=== PATIENT | female | born 1945 | race Caucasian/White ===

== ENCOUNTER 2017-01-05 18:39 | Emergency (ER) | payer MEDICARE, BC ==
[~2017-01-05] VITALS: Ht 172.7 cm; Wt 78.1 kg
[~2017-01-05 18:39] MED LIST: AMLO2.5T OR; ATOR10 PO
[2017-01-05 18:51] VITALS: BP 163/89; PULSE 101; RESP 16; TEMP 97.6; O2SAT 97
[2017-01-05 19:18] VITALS: PULSE 89; RESP 18; TEMP 97.6; O2SAT 97
[2017-01-05] MEDS ORDERED: SODIUM CHLOR 0.9% 1000 ML INJ 1,000 ML IV SCH (19:34)
--- NOTE | 2017-01-05 19:38 | PD ---
HPI Chief Complaint: GI Complaint Time Seen by Provider: 19:33 Travel History International Travel<30 days: Yes Contact w/Intl Traveler<30days: Yes Name of Country Traveled to: [facility] Traveled to known affect area: No History of Present Illness HPI The patient is a 71-year-old female that took some Augmentin at 12:30 today and then at approximately 5 PM started nausea with vomiting. She vomited 3 times. The Augmentin was for a sinus infection, no x-rays were taken and it was given to her by an urgent care center. She states the Augmentin was for a cold/sinus drainage. She denies any diarrhea or fever. She recently returned from a cruise to [place]. To her knowledge they did not have a problem with gastroenteritis/diarrhea on the boat. There is no blood in the vomitus. She does have some slight frequency of urination. She denies any flank pain. PFSH Past Medical History Diminished Hearing: No Hypertension: Yes Triglycerides - High: Yes Tetanus Vaccination: Unknown Influenza Vaccination: Yes ?: Not Menopausal: Yes Past Surgical History Gynecologic Surgery: Yes Hysterectomy: Yes Social History Alcohol Use: Yes (SOC) Tobacco Use: No Substance Use: No Allergies-Medications (Allergen,Severity, Reaction): Coded Allergies: Metronidazole (Verified Allergy, Mild, RASH, 08/31/12) Reported Meds & Prescriptions Reported Meds & Active Scripts Active Zofran (Ondansetron HCl) 4 Mg Tab 4 Mg PO Q6HR PRN Reported Lipitor (Atorvastatin Calcium) 10 Mg Tab 10 Mg PO DAILY Amlodipine Besylate 2.5 mg (Amlodipine Besylate) 2.5 Mg Tab 5 Mg OR DAILY Review of Systems Except as stated in HPI: all other systems reviewed are Neg Physical Exam Narrative GENERAL: The patient is alert, oriented 3 in slight apparent distress with her nausea. Her vital signs initially showed a heart rate of 101 and blood pressure 163/89. Repeat heart rate is 89. When I see the patient her pulse rate is in the mid 80s. SKIN: Focused skin assessment warm/dry. HEAD: Atraumatic. Normocephalic. EYES: Pupils equal and round. No scleral icterus. No injection or drainage. ENT: No nasal bleeding or discharge. Mucous membranes pink and moist. NECK: Trachea midline. No JVD. CARDIOVASCULAR: Regular rate and rhythm. No murmur appreciated. RESPIRATORY: No accessory muscle use. Clear to auscultation. Breath sounds equal bilaterally. GASTROINTESTINAL: Abdomen soft, non-tender, nondistended. Hepatic and splenic margins not palpable. No guarding or rebound is present. MUSCULOSKELETAL: No obvious deformities. No clubbing. No cyanosis. No edema. NEUROLOGICAL: Awake and alert. No obvious cranial nerve deficits. Motor grossly within normal limits. Normal speech. PSYCHIATRIC: Appropriate mood and affect; insight and judgment normal. Data Data Last Documented VS Vital Signs Date Time Temp Pulse Resp B/P Pulse Ox O2 Delivery O2 Flow Rate FiO2 01/05/17 20:12 90 16 163/73 97 Room Air 01/05/17 19:18 97.6 Orders Complete Blood Count With Diff (01/05/17 19:34) Comprehensive Metabolic Panel (01/05/17 19:34) Lipase (01/05/17 19:34) Urinalysis - C+S If Indicated (01/05/17 19:34) Iv Access Insert/Monitor (01/05/17 19:34) Ecg Monitoring (01/05/17 19:34) Oximetry (01/05/17 19:34) Ondansetron Inj (Zofran Inj) (01/05/17 19:45) Sodium Chlor 0.9% 1000 Ml Inj (Ns 1000 M (01/05/17 19:34) Sodium Chloride 0.9% Flush (Ns Flush) (01/05/17 19:45) Urine Culture (01/05/17 20:50) Labs Laboratory Tests Test 01/05/17 01/05/17 19:35 20:50 White Blood Count 13.7 TH/MM3 Red Blood Count 5.30 MIL/MM3 Hemoglobin 14.3 GM/DL Hematocrit 42.6 % Mean Corpuscular Volume 80.3 FL Mean Corpuscular Hemoglobin 26.9 PG Mean Corpuscular Hemoglobin 33.5 % Concent Red Cell Distribution Width 13.8 % Platelet Count 209 TH/MM3 Mean Platelet Volume 9.3 FL Neutrophils (%) (Auto) 79.9 % Lymphocytes (%) (Auto) 11.3 % Monocytes (%) (Auto) 7.6 % Eosinophils (%) (Auto) 0.7 % Basophils (%) (Auto) 0.5 % Neutrophils # (Auto) 10.9 TH/MM3 Lymphocytes # (Auto) 1.6 TH/MM3 Monocytes # (Auto) 1.0 TH/MM3 Eosinophils # (Auto) 0.1 TH/MM3 Basophils # (Auto) 0.1 TH/MM3 CBC Comment DIFF FINAL Differential Comment Sodium Level 138 MEQ/L Potassium Level 4.0 MEQ/L Chloride Level 102 MEQ/L Carbon Dioxide Level 27.4 MEQ/L Anion Gap 9 MEQ/L Blood Urea Nitrogen 17 MG/DL Creatinine 1.00 MG/DL Estimat Glomerular Filtration 55 ML/MIN Rate Random Glucose 132 MG/DL Calcium Level 8.8 MG/DL Total Bilirubin 0.4 MG/DL Aspartate Amino Transf 17 U/L (AST/SGOT) Alanine Aminotransferase 27 U/L (ALT/SGPT) Alkaline Phosphatase 58 U/L Total Protein 7.6 GM/DL Albumin 3.7 GM/DL Lipase 226 U/L Urine Color YELLOW Urine Turbidity CLEAR Urine pH 5.5 Urine Specific [place] 1.012 Urine Protein NEG mg/dL Urine Glucose (UA) NEG mg/dL Urine Ketones NEG mg/dL Urine Occult Blood TRACE Urine Nitrite NEG Urine Bilirubin NEG Urine Leukocyte Esterase TRACE Urine RBC 0-3 /hpf Urine WBC 6-8 /hpf Urine WBC Clumps FEW Urine Squamous Epithelial 0-5 /hpf Cells Microscopic Urinalysis Comment CULTURE INDICATED MDM Medical Decision Making Medical Screen Exam Complete: Yes Emergency Medical Condition: Yes Medical Record Reviewed: Yes Interpretation(s) The CBC shows a white count of 13,700 but is otherwise unremarkable. The glucose is 132 but the rest of the complete metabolic profile is unremarkable. The lipase is normal. The urine shows 6-8 white cells and few white cell clumps and culture is indicated. Differential Diagnosis Cystitis, pyelonephritis, medication side effect, gastroenteritis, gastritis, pancreatitis, electrolyte disorder, dehydration Narrative Course The patient likely has an Augmentin side effect. She also has a cystitis. There is no evidence for pyelonephritis at this time, she does not have any flank tenderness. Diagnosis Primary Impression: Medication side effect Additional Impression: Cystitis Med/Other Pt SpecificInfo: Prescription(s) given Scripts Nitrofurantoin Monohydrate Macrocrystals (Macrobid)100 Mg [id number] Mg PO BID 10 Days Ref 0 Prov:Harvinder Arroyo MD 01/05/17 Ondansetron (Zofran)4 Mg Tab4 Mg PO Q6HR PRN (NAUSEA OR VOMITING) #28 TAB Ref 0 Prov:Harvinder Arroyo MD 01/05/17 Disposition: 01 DISCHARGE HOME Condition: Stable Harvinder Arroyo MD Jan 05, 2017 19:38
[2017-01-05] MEDS ORDERED: SODIUM CHLORIDE 0.9% FLUSH 10 ML FLUSH IV FLUSH PRN (19:45)
[2017-01-05] MEDS ORDERED: ONDANSETRON HCL 4 MG/2 ML VIAL IVP ONE (19:45)
[2017-01-05 20:03] LABS: CHLORIDE 102 MEQ/L (98-107); SODIUM (NA) 138 MEQ/L (136-145)
[2017-01-05 20:07] LABS: ANION GAP 9 MEQ/L (5-15); AUTOMATED NEUTROPHIL # 10.9 TH/MM3 (1.8-7.7); BASOPHIL # 0.1 TH/MM3 (0-0.2); BASOPHIL % 0.5 % (0.0-2.0); BICARBONATE 27.4 MEQ/L (21.0-32.0); BLOOD UREA NITROGEN 17 MG/DL (7-18); EOSINOPHIL # 0.1 TH/MM3 (0-0.4); EOSINOPHIL % 0.7 % (0.0-4.0); HEMATOCRIT 42.6 % (35.0-46.0); LYMPH % 11.3 % (9.0-44.0); LYMPHOCYTE # 1.6 TH/MM3 (1.0-4.8); MEAN CELL VOLUME 80.3 FL (80.0-100.0); MEAN CORPUSCULAR HEMOGLOBIN 26.9 PG (27.0-34.0); MEAN CORPUSCULAR HGB CONC 33.5 % (32.0-36.0); MONO % 7.6 % (0.0-8.0); NEUT % 79.9 % (16.0-70.0); PLATELET COUNT 209 TH/MM3 (150-450); RED CELL DISTRIBUTION WIDTH 13.8 % (11.6-17.2); WHITE BLOOD COUNT 13.7 TH/MM3 (4.0-11.0)
[2017-01-05 20:09] LABS: ALT (GPT) 27 U/L (10-53)
[2017-01-05 20:10] LABS: AST (GOT) 17 U/L (15-37); GLOMERULAR FILTRATION RATE 55 ML/MIN (>89)
[2017-01-05 20:11] LABS: TOTAL BILIRUBIN ADULT 0.4 MG/DL (0.2-1.0)
[2017-01-05 20:12] VITALS: BP 163/73; PULSE 90; RESP 16; O2SAT 97
[2017-01-05 20:12] LABS: ALKALINE PHOSPHATASE 58 U/L (45-117)
[2017-01-05 20:13] LABS: HEMO FLAGS DIFF FINAL
[2017-01-05] MEDS ORDERED: ZOFR4TAB PO (20:19)
[2017-01-05 20:57] LABS: BLOOD, URINE TRACE (NEG); GLUCOSE,URINE NEG (NEG); KETONE, URINE NEG (NEG); NITRITE,URINE NEG (NEG); PH, URINE 5.5 (5.0-8.5)
[2017-01-05 21:06] LABS: URINE COLOR YELLOW (YELLW/STRAW)
[2017-01-05 21:07] LABS: COMMENT (UR) CULTURE INDICATED; CULTURE IF INDICATED CULTURE INDICATED; RBC, URINE 0-3 /hpf (0-3); SQUAMOUS EPITHELIAL CELL URINE 0-5 /hpf (0-5)
[2017-01-05] MEDS ORDERED: MACR100C2 PO (21:22)
[2017-01-05] MEDS ORDERED: NITROFURANTOIN MONOHYD MACROCR 100 MG CAP PO ONE (21:45)
[2017-01-05 22:00] VITALS: BP 158/75; PULSE 89; RESP 16; O2SAT 97
== END 2017-01-05 22:04 | disposition home or self-care (01) ==
LOC: PHED 18:39
DX: R11.2 Nausea with vomiting, unspecified (principal); T36.0X5A Adverse effect of penicillins, initial encounter; N30.90 Cystitis, unspecified without hematuria; I10 Essential (primary) hypertension; E78.1 Pure hyperglyceridemia
CPT/HCPCS: 80053; 81001; 83690; 85025; 87086; 96361; 96374; 99284; J2405; J7030

== ENCOUNTER 2017-06-13 06:41 | Emergency (ER) | payer MEDICARE, BC ==
[2017-06-13] VITALS (7 sets, daily range): BP systolic 148–226; BP diastolic 81–109; PULSE 79–94; RESP 16–18; TEMP 97.6; O2SAT 99
[~2017-06-13] VITALS: Ht 172.7 cm; Wt 77.8 kg
[~2017-06-13 06:41] MED LIST changes: +MACR100C2 PO; +ZOFR4TAB PO
[2017-06-13] MEDS ORDERED: ALEV220T14 PO (07:20)
[2017-06-13] MEDS ORDERED: ALPR.25 PO (07:20)
--- NOTE | 2017-06-13 07:58 | PD ---
HPI Chief Complaint: Hypertension Time Seen by Provider: 07:54 Travel History International Travel<30 days: No Contact w/Intl Traveler<30days: No Traveled to known affect area: No History of Present Illness HPI 72-year-old female patient with history of hypertension, currently not on any blood pressure medications because she was taken off by her physician and the summer, has cut off all soft drinks from her diet since yesterday, states that she usually drinks several clarita and Buster-up daily. She states that they are caffeinated. She states that she started having headaches yesterday evening, progressing today. She states is currently a 7 out of 10. She denies any nausea, vomiting, fevers, coughing, or any other symptoms. She does not know any exacerbating or alleviating factors. Modifying Factors: None Associated Signs & Symptoms: Headache Risk Factors: High blood pressure PFSH Past Medical History Arthritis: Yes (right knee) Anxiety: Yes Diminished Hearing: No Hypertension: Yes Triglycerides - High: Yes Tetanus Vaccination: > 5 Years Influenza Vaccination: Yes ?: Not Menopausal: Yes Past Surgical History Appendectomy: Yes Gynecologic Surgery: Yes Hysterectomy: Yes Tonsillectomy: Yes Social History Alcohol Use: Yes (SOC) Tobacco Use: No Substance Use: No Allergies-Medications (Allergen,Severity, Reaction): Coded Allergies: [id number] Reductase Inhibitor (Verified Allergy, Intermediate, rash , 06/13/17) acetaminophen (Verified Allergy, Intermediate, Nausea/Vomiting, 06/13/17) amoxicillin (Verified Allergy, Intermediate, hives, 06/13/17) clavulanic acid (Verified Allergy, Intermediate, hives, 06/13/17) hydrocodone (Verified Allergy, Intermediate, Nausea/Vomiting, 06/13/17) metronidazole (Unverified Allergy, Mild, RASH, 06/13/17) Reported Meds & Prescriptions Reported Meds & Active Scripts Active Reported Aleve Arthritis (Naproxen Sodium) 220 Mg Tab 220 Mg PO BID PRN Xanax (Alprazolam) 0.25 Mg Tab 0.25 Mg PO HS PRN Review of Systems Except as stated in HPI: all other systems reviewed are Neg Physical Exam Narrative GENERAL: Well-developed elderly white female patient currently in mild distress. Awake and oriented 3. SKIN: Focused skin assessment warm/dry. HEAD: Atraumatic. Normocephalic. EYES: Pupils equal and round. No scleral icterus. No injection or drainage. ENT: No nasal bleeding or discharge. Mucous membranes pink and moist. NECK: Trachea midline. No JVD. Supple. CARDIOVASCULAR: Regular rate and rhythm. No murmur appreciated. RESPIRATORY: No accessory muscle use. Clear to auscultation. Breath sounds equal bilaterally. GASTROINTESTINAL: Abdomen soft, non-tender, nondistended. Hepatic and splenic margins not palpable. MUSCULOSKELETAL: No obvious deformities. No clubbing. No cyanosis. No edema. NEUROLOGICAL: Awake and alert. No obvious cranial nerve deficits. Motor grossly within normal limits. Normal speech. PSYCHIATRIC: Appropriate mood and affect; insight and judgment normal. Data Data Last Documented VS Vital Signs Date Time Temp Pulse Resp B/P (MAP) Pulse Ox O2 Delivery O2 Flow Rate FiO2 06/13/17 09:06 80 16 179/90 (119) 99 Room Air 06/13/17 06:51 97.6 Orders Orders Complete Blood Count With Diff (06/13/17 07:54) Comprehensive Metabolic Panel (06/13/17 07:54) Prothrombin Time / Inr (Pt) (06/13/17 07:54) Act Partial Throm Time (Ptt) (06/13/17 07:54) Ct Brain W/O Iv Contrast(Rout) (06/13/17 07:54) Ecg Monitoring (06/13/17 07:54) Iv Access Insert/Monitor (06/13/17 07:54) Oximetry (06/13/17 07:54) Sodium Chloride 0.9% Flush (Ns Flush) (06/13/17 08:00) Clonidine (Catapres) (06/13/17 08:00) Labs Laboratory Tests Test 06/13/17 08:05 White Blood Count 9.1 TH/MM3 Red Blood Count 5.22 MIL/MM3 Hemoglobin 13.7 GM/DL Hematocrit 41.6 % Mean Corpuscular Volume 79.6 FL Mean Corpuscular Hemoglobin 26.3 PG Mean Corpuscular Hemoglobin Concent 33.0 % Red Cell Distribution Width 13.9 % Platelet Count 294 TH/MM3 Mean Platelet Volume 8.5 FL Neutrophils (%) (Auto) 73.2 % Lymphocytes (%) (Auto) 18.6 % Monocytes (%) (Auto) 6.0 % Eosinophils (%) (Auto) 1.5 % Basophils (%) (Auto) 0.7 % Neutrophils # (Auto) 6.7 TH/MM3 Lymphocytes # (Auto) 1.7 TH/MM3 Monocytes # (Auto) 0.5 TH/MM3 Eosinophils # (Auto) 0.1 TH/MM3 Basophils # (Auto) 0.1 TH/MM3 CBC Comment DIFF FINAL Differential Comment Prothrombin Time 10.9 SEC Prothromb Time International Ratio 1.0 RATIO Activated Partial Thromboplast Time 26.2 SEC Blood Urea Nitrogen 14 MG/DL Creatinine 1.10 MG/DL Random Glucose 120 MG/DL Total Protein 7.2 GM/DL Albumin 3.5 GM/DL Calcium Level 8.4 MG/DL Alkaline Phosphatase 59 U/L Aspartate Amino Transf (AST/SGOT) 12 U/L Alanine Aminotransferase (ALT/SGPT) 23 U/L Total Bilirubin 0.5 MG/DL Sodium Level 138 MEQ/L Potassium Level 3.8 MEQ/L Chloride Level 105 MEQ/L Carbon Dioxide Level 27.0 MEQ/L Anion Gap 6 MEQ/L Estimat Glomerular Filtration Rate 49 ML/MIN [facility] Medical Decision Making Medical Screen Exam Complete: Yes Emergency Medical Condition: Yes Medical Record Reviewed: Yes Interpretation(s) Laboratory Tests Test 06/13/17 08:05 Mean Corpuscular Volume 79.6 FL (80.0-100.0) Mean Corpuscular Hemoglobin 26.3 PG (27.0-34.0) Neutrophils (%) (Auto) 73.2 % (16.0-70.0) Creatinine 1.10 MG/DL (0.50-1.00) Random Glucose 120 MG/DL (74-106) Calcium Level 8.4 MG/DL (8.5-10.1) Aspartate Amino Transf (AST/SGOT) 12 U/L (15-37) Estimat Glomerular Filtration Rate 49 ML/MIN (>89) Last [address] 06/13/17 [id number] Signed Impressions: Service Date/Time: Tuesday, June 13, 2017 08:25 - CONCLUSION: No acute intracranial abnormality is identified to explain the clinical symptoms. Albin Whitten MD Differential Diagnosis Headache, hypertension: Hypertensive urgency versus caffeine withdrawal versus ICH versus meningitis Narrative Course CAT scan did not show any signs of acute intracranial processes. Lab work was otherwise unremarkable for significant metabolic issues. Patient was given a dose of clonidine 9 and on reevaluation at 9 AM, is feeling improved, headache is going down to 4-5 out of 10. Symptoms began slowly, and without significant meningeal signs, I am not suspecting other acute intracranial processes or meningitis in this case. My plan would be to release the patient with symptomatic relief for headache with ibuprofen [id number] as needed, and follow-up closely with primary care physician for reevaluation of blood pressures. If her blood pressures continued to be elevated, she may need further treatment. The plan was discussed with her and she states understanding. Diagnosis Primary Impression: Headache Additional Impression: Hypertension Disposition: 01 DISCHARGE HOME Condition: Stable Moses Martins MD Jun 13, 2017 07:58
[2017-06-13] MEDS ORDERED: SODIUM CHLORIDE 0.9% FLUSH 10 ML FLUSH IVF PRN (08:00)
[2017-06-13] MEDS ORDERED: cloNIDine HCL 0.1 MG TAB PO ONE (08:00)
[2017-06-13 08:18] LABS: AUTOMATED NEUTROPHIL # 6.7 TH/MM3 (1.8-7.7); BASOPHIL # 0.1 TH/MM3 (0-0.2); BASOPHIL % 0.7 % (0.0-2.0); EOSINOPHIL # 0.1 TH/MM3 (0-0.4); EOSINOPHIL % 1.5 % (0.0-4.0); HEMATOCRIT 41.6 % (35.0-46.0); HEMO FLAGS DIFF FINAL; LYMPH % 18.6 % (9.0-44.0); LYMPHOCYTE # 1.7 TH/MM3 (1.0-4.8); MEAN CELL VOLUME 79.6 FL (80.0-100.0); MEAN CORPUSCULAR HEMOGLOBIN 26.3 PG (27.0-34.0); NEUT % 73.2 % (16.0-70.0); PLATELET COUNT 294 TH/MM3 (150-450); RED BLOOD COUNT 5.22 MIL/MM3 (4.00-5.30); RED CELL DISTRIBUTION WIDTH 13.9 % (11.6-17.2); WHITE BLOOD COUNT 9.1 TH/MM3 (4.0-11.0)
[2017-06-13 08:22] LABS: CHLORIDE 105 MEQ/L (98-107); POTASSIUM 3.8 MEQ/L (3.5-5.1); SODIUM (NA) 138 MEQ/L (136-145)
[2017-06-13 08:26] LABS: ANION GAP 6 MEQ/L (5-15); BLOOD UREA NITROGEN 14 MG/DL (7-18)
[2017-06-13 08:27] LABS: APTT (PATIENT) 26.2 SEC (24.3-30.1); PROTHROMBIN TIME - PATIENT 10.9 SEC (9.8-11.6)
[2017-06-13 08:29] LABS: ALT (GPT) 23 U/L (10-53); AST (GOT) 12 U/L (15-37); GLOMERULAR FILTRATION RATE 49 ML/MIN (>89)
[2017-06-13 08:31] LABS: TOTAL BILIRUBIN ADULT 0.5 MG/DL (0.2-1.0)
[2017-06-13 08:32] LABS: ALKALINE PHOSPHATASE 59 U/L (45-117)
--- NOTE | 2017-06-13 08:46 | RADRPT ---
EXAM DATE/TIME: 06/13/2017 08:25 [facility] COMPARISON: No previous studies available for comparison. INDICATIONS : Cephalgia. RADIATION DOSE: 58.35 CTDIvol (mGy) MEDICAL HISTORY : Hypertension. SURGICAL HISTORY : Appendectomy. Hysterectomy. ENCOUNTER: Initial ACUITY: 1 day PAIN SCALE: 8/10 LOCATION: cranial TECHNIQUE: Multiple contiguous axial images were obtained of the head. Using automated exposure control and adj ustment of the mA and/or kV according to patient size, radiation dose was kept as low as reasonably a chievable to obtain optimal diagnostic quality images. DICOM format image data is available electro nically for review and comparison. FINDINGS: CEREBRUM: The ventricles are normal. No evidence of midline shift, mass lesion, hemorrhage or acute infarction . No extra-axial fluid collections are seen. POSTERIOR FOSSA: The cerebellum and brainstem are intact. The 4th ventricle is midline. The cerebellopontine angle i s unremarkable. EXTRACRANIAL: Visualized sinuses are clear. There is degenerative change at the left TMJ. SKULL: The calvaria is intact. No evidence of skull fracture. CONCLUSION: No acute intracranial abnormality is identified to explain the clinical symptoms. Albin Whitten MD on June 13, 2017 at 8:43 Board Certified Radiologist. This report was verified electronically.
== END 2017-06-13 09:25 | disposition home or self-care (01) ==
LOC: PHED 06:41
DX: R51 Headache (principal); I10 Essential (primary) hypertension
CPT/HCPCS: 70450; 80053; 85025; 85610; 85730; 99284